=== PATIENT | female | born 1985 | race Two or more races ===

== ENCOUNTER 2018-04-29 15:42 | Emergency (ER) | payer MEDICAID ==
[~2018-04-29] VITALS: Ht 165.1 cm; Wt 76.2 kg
[2018-04-29] MEDS ORDERED: RISPERDAL0.25 MG ORAL (15:59)
[2018-04-29] MEDS ORDERED: QUETIAPINE FUMA25 MG ORAL (15:59)
[2018-04-29] MEDS ORDERED: PROZAC10 MG ORAL (15:59)
[2018-04-29 16:05] VITALS: BP 111/73
--- NOTE | 2018-04-29 16:05 | NUR ---
ED Nurse Note: AMBULATED IN TO ER DUE TO SORE THROAT X2 DAYS.
--- NOTE | 2018-04-29 16:25 | Emergency Room Report ---
History of Present Illness General Chief Complaint: Sore Throat Source: Patient Present Illness Allergies: Coded Allergies: No Known Allergies (Unverified , 04/29/18) Patient History Last Menstrual Period: 04/21/18 Nursing Documentation-[facility] Past Medical History: No History, Except For History Of Psychiatric Problem: Yes - OCD Physical Exam Vital Signs Date Time Temp Pulse Resp B/P (MAP) Pulse Ox O2 Delivery O2 Flow Rate FiO2 04/29/18 15:50 98.1 96 18 111/73 98 Room Air Medical Decision Making PA Attestation Dr. Garnett is my supervising Physician whom patient management has been discussed with. Diagnostic Impression: Primary Impression: Exudative pharyngitis ER Course Pt. presents to the ED c/o : sore throat, tonsillar swelling, and nasal congestion x 2 days Ddx considered but are not limited to: pharyngitis, strep, [employer], ludwigs angina, URI Vital signs: are WNL, pt. is afebrile H&PE are most consistent with: pharyngitis presumed strep. ORDERS: None required at this time as the diagnosis is clinical ED INTERVENTIONS: none required at this time. DISCHARGE: At this time pt. is stable for d/c to home. Will provide printed patient care instructions, and any necessary prescriptions. Care plan and follow up instructions have been discussed with the patient prior to discharge. Last Vital Signs Date Time Temp Pulse Resp B/P (MAP) Pulse Ox O2 Delivery O2 Flow Rate FiO2 04/29/18 15:50 98.1 96 18 111/73 98 Room Air Disposition: HOME, SELF-CARE Condition: Stable Patient Instructions: Strep Throat Additional Instructions: Take medications as directed. Follow up with a Primary Care Provider in 3-5 days, even if your symptoms have resolved. --Please review list of primary care clinics, if you do not already have a primary care provider Return sooner to ED if new symptoms occur, or current symptoms become worse. - Please note that this Emergency Department Report was dictated using VendorStackvending machine mechanic technology software, occasionally this can lead to erroneous entry secondary to interpretation by the dictation equipment. Sumaya Arrington Apr 29, 2018 16:25
[2018-04-29] MEDS ORDERED: LIDOCAINE VISC100 ML ORAL (16:27)
[2018-04-29] MEDS ORDERED: AUGMENTIN 875-1 EAC1 ORAL (16:27)
[2018-04-29 16:36] VITALS: BP 111/73
--- NOTE | 2018-04-29 16:37 | NUR ---
ER Nurse Note: A/OX4. PT IS CLEARED BY LORI GARCIA. DC INSTRUCTION AND PRESCRIPTIONS GIVEN, PT VERBALIZED UNDERSTSANDING. IV/ID WRISTBAND REMOVED. ALL BELONGINGS TAKEN BY PT. DENIES ANY PAIN AT THIS TIME. PT AMBULATED OUT OF ER WITH STEADY GAIT.
== END 2018-04-29 16:40 | disposition home or self-care (01) ==
LOC: EMR 16:28
DX: J02.9 Acute pharyngitis, unspecified (principal)
CPT/HCPCS: 99282

== ENCOUNTER 2018-06-14 02:18 | Emergency (ER) | payer MEDICAID ==
[~2018-06-14] VITALS: Ht 167.6 cm; Wt 77.1 kg
[~2018-06-14 02:18] MED LIST: AUGMENTIN 875-1 EAC1 ORAL; LIDOCAINE VISC100 ML ORAL; PROZAC10 MG ORAL; QUETIAPINE FUMA25 MG ORAL; RISPERDAL0.25 MG ORAL
[2018-06-14] MEDS ORDERED: ZOFRAN4 M3 ORAL (02:29)
[2018-06-14 02:35] VITALS: BP 115/83
--- NOTE | 2018-06-14 02:35 | NUR ---
ED Nurse Note: Pt arrived ambulatory with complaint of nausea/vomiting and abdominal pain for approximately 1 month. Pt states that at the moment she is not experiencing any abdominal pain but has been vomiting throughout the day. Pt connected to monitor, VSS. Showing no signs of distress. Will conitnue to monitor.
--- NOTE | 2018-06-14 03:05 | NUR ---
ED Nurse Note: IV access established. Blood drawn; sent down to lab.
[2018-06-14 03:11] LABS: APPEARANCE,URINE CLEAR; BILIRUBIN, URINE NEGATIVE (NEGATIVE); COLOR,URINE PALE YELLOW; GLUCOSE, URINE (UA) NEGATIVE (NEGATIVE); KETONES,URINE NEGATIVE (NEGATIVE); LEUKOCYTE ESTERASE ,URINE NEGATIVE (NEGATIVE); NITRITE,URINE NEGATIVE (NEGATIVE); PH,URINE 6 (4.5-8.0); PROTEIN,URINE NEGATIVE (NEGATIVE); UROBILINOGEN,URINE NORMAL MG/DL (0.0-1.0)
[2018-06-14] MEDS ORDERED: Pantoprazole Inj IV ONE (03:15)
[2018-06-14 03:25] LABS: BASOPHILS % (AUTO) 1.1 % (0.0-2.0); EOSINOPHILS % (AUTO) 1.2 % (0.0-3.0); HEMATOCRIT 38.1 % (37.0-47.0); HEMOGLOBIN 12.7 G/DL (12.0-16.0); LYMPHOCYTES % (AUTO) 31.9 % (20.0-45.0); MEAN CORPUSCULAR VOLUME 87 FL (80-99); MONOCYTES % (AUTO) 7.7 % (1.0-10.0); PLATELET COUNT 288 K/UL (150-450); RED CELL DISTRIBUTION WIDTH 11.7 % (11.6-14.8); WHITE BLOOD COUNT 14.7 K/UL (4.8-10.8)
--- NOTE | 2018-06-14 03:25 | NUR ---
ED Nurse Note: Patient down to CT via wheelchair.
[2018-06-14 03:35] LABS: ANION GAP 9 mmol/L (5-15); BLOOD UREA NITROGEN 11 mg/dL (7-18); CARBON DIOXIDE 28 MMOL/L (21-32); CHLORIDE 103 MMOL/L (98-107); CREATININE 0.9 MG/DL (0.55-1.30); POTASSIUM 3.7 MMOL/L (3.5-5.1); SODIUM 140 MMOL/L (136-145)
[2018-06-14 03:39] LABS: ALANINE AMINOTRANSFERASE 22 U/L (12-78); ALBUMIN 3.6 G/DL (3.4-5.0); ALBUMIN/GLOBULIN RATIO 1.1 (1.0-2.7); ALKALINE PHOSPHATASE 50 U/L (46-116); ASPARTATE AMINO TRANSFERASE 11 U/L (15-37); BILIRUBIN,TOTAL 0.3 MG/DL (0.2-1.0)
--- NOTE | 2018-06-14 04:26 | Emergency Room Report ---
History of Present Illness General Chief Complaint: Nausea Source: Patient Present Illness HPI Is a 32-year-old female with no past history. She presents with chief complaint of vomiting and cough. She had problem with vomiting one to 2 times a day for the last month or 2. Seen her primary care and cristino Hatch. She has an appointment with GI in July. She had recent blood work and was toes unremarkable. She came in tonight is she has more vomiting. She has more coughing. Pain is diffuse and also epigastric area. Vomiting is nonbloody nonbilious. No diarrhea. No trauma. Minimal pain. Allergies: Coded Allergies: No Known Allergies (Unverified , 04/29/18) Patient History Past Medical History: see triage record, old chart reviewed Past Surgical History: none Pertinent Family History: none Social History: Denies: smoking Last Menstrual Period: 05/27/18 Now: No Immunizations: other Reviewed Nursing Documentation: PMH: Agreed; PSxH: Agreed Nursing Documentation-PMH Past Medical History: No Stated History Review of Systems Eye: Denies: eye pain, blurred vision ENT: Denies: ear pain, nose congestion, throat swelling Respiratory: Reports: cough; Denies: shortness of breath Cardiovascular: Denies: chest pain, palpitations Gastrointestinal: Reports: nausea, vomiting; Denies: abdominal pain, diarrhea Musculoskeletal: Denies: back pain, joint pain Skin: Denies: rash Neurological: Denies: headache, numbness Endocrine: Denies: increased thirst, increased urine Hematologic/Lymphatic: Denies: easy bruising All Other Systems: negative except mentioned in HPI Physical Exam Vital Signs Date Time Temp Pulse Resp B/P (MAP) Pulse Ox O2 Delivery O2 Flow Rate FiO2 06/14/18 02:25 98.6 87 12 115/83 95 vitals normal Sp02 EP Interpretation: reviewed, normal General Appearance: well appearing, no apparent distress, alert Head: normocephalic, atraumatic Eyes: bilateral eye PERRL, bilateral eye EOMI ENT: hearing grossly normal, normal pharynx Neck: full range of motion, supple, no meningismus Respiratory: chest non-tender, lungs clear, normal breath sounds Cardiovascular #1: regular rate, rhythm, no murmur Gastrointestinal: normal bowel sounds, non tender, no mass, no organomegaly, no bruit, non-distended Musculoskeletal: back normal, gait/station normal, normal range of motion Psychiatric: mood/affect normal Skin: warm/dry Medical Decision Making Diagnostic Impression: Primary Impression: Nausea and vomiting in adult patient Additional Impression: Viral URI with cough ER Course Patient with chronic nausea and vomiting. I suspect is more psychological in nature than anything else. Could be reflux causing her problem. Exacerbated by recent URI symptoms with cough. We will discharge home. CT of abdomen and unremarkable. No acute abdomen. CT/MRI/US Diagnostic Results CT/MRI/US Diagnostic Results : Imaging Test Ordered: CT abdomen and pelvis Impression unremarkable per radiologist Last Vital Signs Date Time Temp Pulse Resp B/P (MAP) Pulse Ox O2 Delivery O2 Flow Rate FiO2 06/14/18 02:25 98.6 87 12 115/83 95 Status: improved Disposition: HOME, SELF-CARE Condition: Stable Scripts Omeprazole Magnesium (PRILOSEC OTC) 20 Mg Tablet.dr 20 MG ORAL DAILY, #30 TAB Prov: Froylan Cha MD 06/14/18 Codeine/Promethazine Hcl* (PROMETHAZINE-CODEINE SYRUP*) 118 Ml Syrup 5 ML ORAL Q6H PRN for For Cough, #118 ML 0 Refills Prov: Froylan Cha MD 06/14/18 Referrals: [facility],REFERRING (PCP) Patient Instructions: Nausea and Vomiting, Adult Additional Instructions: Follow-up with your doctor in 7 days. Return if worse. Keep your appointment with GI doctor. Froylan Cha MD Jun 14, 2018 04:26
[2018-06-14] MEDS ORDERED: PRILOSEC OTC20 MG ORAL (04:40)
[2018-06-14] MEDS ORDERED: PROMETHAZINE-C118 M1 ORAL (04:40)
[2018-06-14 04:45] VITALS: BP 126/76
--- NOTE | 2018-06-14 04:45 | NUR ---
ED Nurse Note: Pt cleared by MD. Discharge instructions and prescriptions provided. pt verbalized understanding of all instructions. ID band and IV removed. All belongings taken with patient. VSS. Showing no signs of acute distress.
--- NOTE | 2018-06-14 09:09 | Diagnostic Imaging Report ---
Indication: Nausea for one week Technique: Spiral acquisitions obtained through the abdomen and pelvis. No oral contrast utilized, per emergency room physician request No IV contrast utilized, per referring physician request.. Multiplanar reconstructions were generated. Total dose length product 779.98 mGycm. CTDIvol(s) 15.03 mGy. Dose reduction achieved using automated exposure control Comparison: None Findings: The appendix is normal. There is no evidence of diverticulosis or diverticulitis. No small bowel distention. No free or loculated intraperitoneal gas or fluid is evident. The distal esophagus, stomach, duodenum are unremarkable. The lack of IV contrast limits assessment of solid organs. The liver, gallbladder, bile ducts, pancreas, spleen, adrenals, kidneys are all unremarkable. No retroperitoneal or mesenteric mass or adenopathy. No pelvic mass or adenopathy. The included lung bases are clear. The bones are unremarkable Impression: Negative This agrees with the preliminary interpretation provided overnight by [facility] teleradiology service. The CT scanner at [facility] is accredited by the [employer] and the scans are performed using protocols designed to limit radiation exposure to as low as reasonably achievable to attain images of sufficient resolution adequate for diagnostic evaluation.
== END 2018-06-14 04:45 | disposition home or self-care (01) ==
LOC: EMR 03:14
DX: R11.2 Nausea with vomiting, unspecified (principal); J06.9 Acute upper respiratory infection, unspecified
CPT/HCPCS: 36415; 74176; 80053; 81003; 81025; 83690; 85025; 96361; 96374; 96375; 96376; 99284; C9113; J2405